=== PATIENT | female | born 1995 | race Two or more races ===

== ENCOUNTER 2021-03-25 19:49 | Observation (INO) | payer SELFPAY ==
[~2021-03-25] VITALS: Ht 154.9 cm; Wt 81.2 kg
[2021-03-25] MEDS ORDERED: PREN-96 PO (21:00)
== END 2021-03-25 21:06 | disposition home or self-care (01) ==
LOC: LDRP 19:49
PROVIDERS: ADMIT Specialist; ATTEND Specialist
DX: O62.9 Abnormality of forces of labor, unspecified (principal); Z3A.37 37 weeks gestation of pregnancy
CPT/HCPCS: 59025; 81002; G0378

== ENCOUNTER 2021-03-31 03:15 | Observation (INO) | payer OTHER ==
[~2021-03-31] VITALS: Ht 154.9 cm; Wt 81.2 kg
[~2021-03-31 03:15] MED LIST: PREN-96 PO
== END 2021-03-31 07:00 | disposition home or self-care (01) ==
LOC: LDRP 03:15
PROVIDERS: ADMIT Specialist; ATTEND Specialist
DX: O42.92 Full-term premature rupture of membranes, unspecified as to length of time between rupture and onset of labor (principal); O62.9 Abnormality of forces of labor, unspecified; Z3A.38 38 weeks gestation of pregnancy
CPT/HCPCS: 59025; 76815; 81002; 84112; G0378; Q0114

== ENCOUNTER 2021-03-31 17:00 | Observation (INO) | payer MEDICAID, OTHER | END 2021-03-31 18:05 | disposition home or self-care (01) | LOC: LDRP 17:00 | PROVIDERS: ADMIT Obstetrics & Gynecology; ATTEND Obstetrics & Gynecology | DX: O62.9 Abnormality of forces of labor, unspecified (principal); O26.893 Other specified pregnancy related conditions, third trimester; R51.9 Headache, unspecified; R11.0 Nausea; M79.89 Other specified soft tissue disorders; Z3A.38 38 weeks gestation of pregnancy | CPT/HCPCS: 59025; 81002; G0378 ==

== ENCOUNTER 2021-04-03 07:50 | Observation (INO) | payer OTHER | END 2021-04-03 09:39 | disposition home or self-care (01) | LOC: LDRP 07:50 | PROVIDERS: ADMIT Obstetrics & Gynecology; ATTEND Obstetrics & Gynecology | DX: O40.3XX0 Polyhydramnios, third trimester, not applicable or unspecified (principal); O62.9 Abnormality of forces of labor, unspecified; Z3A.38 38 weeks gestation of pregnancy | CPT/HCPCS: 59025; 76818; 81002; G0378 ==

== ENCOUNTER 2021-04-06 14:00 | Observation (INO) | payer OTHER | END 2021-04-06 15:35 | disposition home or self-care (01) | LOC: LDRP 14:00 | PROVIDERS: ADMIT Specialist; ATTEND Specialist | DX: O40.3XX0 Polyhydramnios, third trimester, not applicable or unspecified (principal); Z3A.39 39 weeks gestation of pregnancy | CPT/HCPCS: 59025; 76818; 81002; G0378 ==

== ENCOUNTER 2021-04-09 09:59 | Observation (INO) | payer OTHER ==
[2021-04-09 12:13] LABS: Basophils # (auto) 0 10 ^3/uL (0-0.2); Basophils % (auto) 0.2 % (0.0-2.0); Eosinophils # (auto) 0 10 ^3/uL (0-0.8); Eosinophils % (auto) 0.3 % (0.0-7.0); Hematocrit 34.9 % (36.0-46.0); Hemoglobin 11.8 g/dL (12.2-16.2); Lymphocytes # (auto) 2.3 10 ^3/uL (0.4-5.4); Lymphocytes % (auto) 18.3 % (10.0-50.0); Mean Corpuscular Hemoglobin 29.5 pg (28.0-32.0); Mean Corpuscular Hgb Conc. 33.8 g/dL (32.0-36.0); Mean Corpuscular Volume 87.2 fL (80.0-100.0); Monocytes # (auto) 0.8 10 ^3/uL (0-1.3); Neutrophils # (auto) 9.6 10 ^3/uL (1.6-8.6); Neutrophils % (auto) 75.2 % (37.0-80.0); Platelet Count (auto) 183 10^3/uL (140-450); Red Cell Distribution Width 15.5 % (11.8-14.3); White Blood Cell 12.8 10^3/uL (4.4-10.8)
[2021-04-09 12:21] LABS: Urine Bacteria FEW /hpf (None Seen); Urine Blood Negative /uL (Negative); Urine Specific Gravity 1.007 (1.001-1.035); Urine WBC 1 /hpf (0 - 5)
[2021-04-09 12:29] LABS: INR 0.88 (0.9-1.15); Partial Thromboplastin Time 25.5 sec (23.0-31.2)
[2021-04-09 12:32] LABS: Albumin 2.2 g/dL (3.4-5.0); Calcium 8.1 mg/dL (8.5-10.1)
[2021-04-09 12:33] LABS: Protein, Urine 7.2 mg/dL (0.0-11.9)
[2021-04-09 12:36] LABS: BUN/Creatinine Ratio 21.2; Bilirubin, Total 0.2 mg/dL (0.2-1.0); Total Protein 5.8 g/dL (6.4-8.2); Uric Acid 5.1 mg/dL (2.6-6.0)
== END 2021-04-09 14:15 | disposition home or self-care (01) ==
LOC: LDRP 09:59
PROVIDERS: ADMIT Obstetrics & Gynecology; ATTEND Obstetrics & Gynecology
DX: O40.3XX0 Polyhydramnios, third trimester, not applicable or unspecified (principal); Z3A.39 39 weeks gestation of pregnancy
CPT/HCPCS: 36415; 59025; 76818; 80053; 81001; 81002; 82570; 84156; 84550; 85025; 85610; 85730; G0378

== ENCOUNTER 2021-04-11 07:25 | Inpatient (IN) | payer OTHER ==
[~2021-04-11] VITALS: Ht 154.9 cm; Wt 81.2 kg
[2021-04-11 08:44] LABS: Protein, Urine 13.6 mg/dL (0.0-11.9)
[2021-04-11 08:50] LABS: Protein, Urine 17.3 mg/dL (0.0-11.9)
[2021-04-11 09:20] LABS: Urine Bacteria MANY /hpf (None Seen); Urine Blood Negative /uL (Negative); Urine Mucus FEW (None Seen); Urine Specific Gravity 1.011 (1.001-1.035); Urine WBC 64 /hpf (0 - 5)
[2021-04-11] MEDS ORDERED: LIDOCAINE 2%HCL (LOCAL ANESTH.) INJ 20ML MDV IJ PRN (10:00)
[2021-04-11] MEDS ORDERED: BUTORPHANOL TARTRATE 2 MG/1 ML VIAL IV PRN ×2 (10:00)
[2021-04-11] MEDS ORDERED: PROMETHAZINE HCL 25 MG/ML 1ML IV PRN (10:00)
[2021-04-11] MEDS ORDERED: PHISODERM TOP SOLN 240ML BTL TOP PRN (10:00)
[2021-04-11] MEDS ORDERED: DERMOPLAST 60ML BOTTLE TOP PRN (10:00)
[2021-04-11 10:58] LABS: Basophils # (auto) 0 10 ^3/uL (0-0.2); Basophils % (auto) 0.2 % (0.0-2.0); Eosinophils # (auto) 0 10 ^3/uL (0-0.8); Eosinophils % (auto) 0.2 % (0.0-7.0); Hematocrit 35.6 % (36.0-46.0); Lymphocytes # (auto) 2.5 10 ^3/uL (0.4-5.4); Lymphocytes % (auto) 18.7 % (10.0-50.0); Mean Corpuscular Hgb Conc. 33.6 g/dL (32.0-36.0); Mean Corpuscular Volume 86.3 fL (80.0-100.0); Monocytes # (auto) 0.7 10 ^3/uL (0-1.3); Monocytes % (auto) 4.9 % (0.0-12.0); Neutrophils # (auto) 10.1 10 ^3/uL (1.6-8.6); Nucleated Red Blood Cells % 0.1 %; Platelet Count (auto) 183 10^3/uL (140-450); Red Blood Cells 4.12 10^6/uL (4.0-5.20); White Blood Cell 13.3 10^3/uL (4.4-10.8)
[2021-04-11 11:16] LABS: Albumin 2.3 g/dL (3.4-5.0); Calcium 8.4 mg/dL (8.5-10.1)
[2021-04-11 11:17] LABS: Amphetamine Screen, Urine NEGATIVE (NEGATIVE); Barbiturate Scree,Urine NEGATIVE (NEGATIVE); Benzodiazephine Screen, Urine NEGATIVE (NEGATIVE); Cannabinoid Screen, Urine NEGATIVE (NEGATIVE); Cocaine Screen, Urine NEGATIVE (NEGATIVE); Opiate Scree,Urine NEGATIVE (NEGATIVE); Phencyclidine Screen, Urine NEGATIVE (NEGATIVE)
[2021-04-11 11:17] LABS: INR 0.87 (0.9-1.15); Partial Thromboplastin Time 24.5 sec (23.0-31.2)
[2021-04-11 11:20] LABS: BUN/Creatinine Ratio 21.4; Bilirubin, Total 0.2 mg/dL (0.2-1.0); Total Protein 5.8 g/dL (6.4-8.2); Uric Acid 5.1 mg/dL (2.6-6.0)
[2021-04-11] MEDS: LACTATED RINGER'S 1,000 ML IV SCH ×3 (12:53→23:23)
[2021-04-11] MEDS: miSOPROStol 50 MCG per PRE-CUT 1/2 TAB PO PRN ×3 (12:53→21:14)
[2021-04-11] MEDS ORDERED: LACT. RINGERS/OXYTOCIN 20UNITS 500 ML IV ONE ×2 (17:30→18:00)
[2021-04-12] VITALS (16 sets, daily range): BP systolic 107–152; BP diastolic 62–95
[2021-04-12] MEDS ORDERED: TERBUTALINE SULFATE 1 MG/ML 1ML VIAL SC ONE (01:15)
[2021-04-12] MEDS: LACT. RINGERS/OXYTOCIN 20UNITS 1,000 ML IV SCH (01:31)
[2021-04-12 05:08] LABS: RPR Non Reactive (Non Reactive)
[2021-04-12] MEDS ORDERED: fentaNYL CITRATE 100 MCG/2 ML VL IV ONE ×2 (05:30→07:00)
[2021-04-12] MEDS ORDERED: ePHEDrine SULFATE 50 MG/ML AMP IV ONE ×3 (05:30→07:00)
[2021-04-12] MEDS ORDERED: ROPIVACAINE HCL 200 ML EPI SCH ×2 (05:30→07:00)
[2021-04-12] MEDS ORDERED: LIDOCAINE HCL 2 %PF INJ 10ML AMP IJ ONE ×2 (05:30→07:00)
[2021-04-12] MEDS ORDERED: LACTATED RINGER'S 1,000 ML IV ONE (05:30)
[2021-04-12] MEDS ORDERED: NALOXONE HCL 0.4 MG/ML VIAL IV ONE ×3 (05:30→07:00)
[2021-04-12] MEDS: LACTATED RINGER'S 1,000 ML IV SCH ×2 (08:17→17:39)
[2021-04-12] MEDS ORDERED: LACTATED RINGER'S 1,000 ML IV SCH (14:45)
[2021-04-12] MEDS ORDERED: CLINDAMYCIN 900MG IV 50 ML IV ONE ×2 (14:45→23:00)
[2021-04-12] MEDS ORDERED: SODIUM BICARBONATE 8.4 % INJ 50ML VIAL IV ONE (14:51)
[2021-04-12] MEDS ORDERED: LIDOCAINE 2% (LOCAL ANESTH.) PF 5ml SDV ONE ×2 (14:51→16:12)
[2021-04-12] MEDS ORDERED: SODIUM CHLORIDE LOCK 10 ML ONE (14:51)
[2021-04-12] MEDS ORDERED: fentaNYL CITRATE 100 MCG/2 ML VL ONE (14:51)
[2021-04-12] MEDS ORDERED: MORPHINE SULF(PF) 0.5MG/ML 10ML VIAL ONE (14:51)
[2021-04-12] MEDS ORDERED: MIDAZOLAM HCL 1MG/1ML-2 ML VIAL ONE ×2 (14:51→15:54)
[2021-04-12] MEDS ORDERED: ONDANSETRON HCL 4 MG/2 ML VIAL ONE (14:51)
[2021-04-12] MEDS ORDERED: oxyTOCIN 10 UNIT/ML 10ML VIAL ONE (14:54)
[2021-04-12] MEDS ORDERED: ACETAMINOPHEN IV 1000 MG/100ML (10MG/ML) IV PRN (16:30)
[2021-04-12] MEDS ORDERED: GUM (CHEWING) 1 GUM CHEW CHEW ONE (16:30)
[2021-04-12] MEDS ORDERED: CLINDAMYCIN 600MG IV 50 ML IV ONE (16:30)
[2021-04-12] MEDS ORDERED: ONDANSETRON HCL 4 MG/2 ML VIAL IV PRN (16:30)
[2021-04-12] MEDS ORDERED: HYDROmorphone HCL 2 MG/ML VL IV PRN ×2 (16:30→16:45)
[2021-04-12] MEDS ORDERED: ePHEDrine SULFATE 50 MG/ML AMP IV PRN (16:30)
[2021-04-12] MEDS ORDERED: KETOROLAC TROMETH 30 MG/ML 1ML VIAL IV PRN (16:30)
[2021-04-12] MEDS ORDERED: MORPHINE SULFATE 4 MG/ML SYR/VIAL IV PRN (16:45)
[2021-04-12] MEDS ORDERED: METOCLOPRAMIDE HCL 5MG/ml INJ 2ml VIAL IV PRN (16:45)
[2021-04-12] MEDS ORDERED: NALOXONE HCL 0.4 MG/ML VIAL IV PRN (16:45)
[2021-04-12] MEDS ORDERED: diphenhdrAMINE HCL 50 MG/1 ML VL IV PRN (16:45)
[2021-04-12] MEDS ORDERED: hydrALAZINE HCL 20 MG/ML VL ONE (16:48)
[2021-04-12] MEDS ORDERED: hydrALAZINE HCL 20 MG/ML VL IV ONE (17:00)
[2021-04-12] MEDS ORDERED: RHO (D) IMMUNE GLOBULIN 300 MCG INJ IM ONE (17:30)
[2021-04-12] MEDS ORDERED: LABETALOL HCL 200 MG TAB PO SCH (18:30)
[2021-04-13] VITALS (18 sets, daily range): BP systolic 96–128; BP diastolic 54–80
[2021-04-13] MEDS: LACTATED RINGER'S 1,000 ML IV SCH ×2 (00:44→02:44)
[2021-04-13] MEDS: WITCH HAZEL-GLYCERIN PAD TOP PRN (06:52)
[2021-04-13] MEDS: LABETALOL HCL 200 MG TAB PO SCH ×3 (06:54→21:54)
[2021-04-13] MEDS: LACT. RINGERS/OXYTOCIN 20UNITS 1,000 ML IV SCH (07:32)
[2021-04-13 08:51] LABS: Basophils # (auto) 0 10 ^3/uL (0-0.2); Basophils % (auto) 0.1 % (0.0-2.0); Eosinophils # (auto) 0 10 ^3/uL (0-0.8); Hematocrit 27.5 % (36.0-46.0); Hemoglobin 9.4 g/dL (12.2-16.2); Lymphocytes # (auto) 1.5 10 ^3/uL (0.4-5.4); Lymphocytes % (auto) 8.7 % (10.0-50.0); Mean Corpuscular Hemoglobin 29.8 pg (28.0-32.0); Mean Corpuscular Hgb Conc. 34.1 g/dL (32.0-36.0); Mean Corpuscular Volume 87.2 fL (80.0-100.0); Monocytes % (auto) 5.6 % (0.0-12.0); Neutrophils # (auto) 14.4 10 ^3/uL (1.6-8.6); Neutrophils % (auto) 85.6 % (37.0-80.0); Platelet Count (auto) 161 10^3/uL (140-450); Red Blood Cells 3.15 10^6/uL (4.0-5.20); Red Cell Distribution Width 15.4 % (11.8-14.3); White Blood Cell 16.9 10^3/uL (4.4-10.8)
[2021-04-13] MEDS ORDERED: BISACODYL 10 MG RECT SUPP PR PRN (10:30)
[2021-04-13] MEDS ORDERED: HYDROcodone-ACET 5/325MG TAB PO PRN ×2 (10:30)
[2021-04-13] MEDS: CLINDAMYCIN 600MG IV 50 ML IV SCH ×2 (12:03→19:48)
[2021-04-13] MEDS: IBUPROFEN 800 MG TAB PO PRN ×2 (12:03→21:18)
[2021-04-13] MEDS: FERROUS SULFATE 325mg EC TAB PO SCH (17:54)
[2021-04-13] MEDS ORDERED: HYDR-4902 PO (21:37)
[2021-04-13] MEDS: DOCUSATE SOD 100 MG CAP PO SCH (21:54)
[2021-04-14 03:15] VITALS: BP_SYST 124; BP_SYST 125; BP_DIAS 80; BP_DIAS 81
[2021-04-14] MEDS: CLINDAMYCIN 600MG IV 50 ML IV SCH (03:34)
[2021-04-14 07:15] VITALS: BP 141/90
[2021-04-14] MEDS: IBUPROFEN 800 MG TAB PO PRN ×2 (07:30→16:07)
[2021-04-14] MEDS: FERROUS SULFATE 325mg EC TAB PO SCH ×2 (07:33→18:38)
[2021-04-14 09:55] VITALS: BP 140/85
[2021-04-14] MEDS: LABETALOL HCL 200 MG TAB PO SCH ×2 (09:55→21:43)
[2021-04-14] MEDS: DOCUSATE SOD 100 MG CAP PO SCH ×2 (09:56→21:44)
[2021-04-14] MEDS: DOCUSATE CALCIUM 240 MG CAP PO SCH (09:56)
[2021-04-14 11:00] VITALS: BP 135/80
[2021-04-14 18:45] VITALS: BP 137/79
[2021-04-14 23:10] VITALS: BP 128/81
[2021-04-15] MEDS: IBUPROFEN 800 MG TAB PO PRN (00:31)
[2021-04-15 03:25] VITALS: BP 135/84
[2021-04-15 07:00] VITALS: BP 131/83
[2021-04-15] MEDS: DOCUSATE CALCIUM 240 MG CAP PO SCH (10:07)
[2021-04-15] MEDS: DOCUSATE SOD 100 MG CAP PO SCH (10:07)
[2021-04-15 10:11] VITALS: BP 133/89
[2021-04-15] MEDS: LABETALOL HCL 200 MG TAB PO SCH (10:14)
[2021-04-15] MEDS: FERROUS SULFATE 325mg EC TAB PO SCH (10:23)
[2021-04-15] MEDS: WITCH HAZEL-GLYCERIN PAD TOP PRN (10:23)
[2021-04-15 11:00] VITALS: BP 133/89
== END 2021-04-15 11:00 | disposition home or self-care (01) | DRG 787 ==
LOC: LDRP 07:25 → OBSVTOIN 09:47 → LDRP 10:43
PROVIDERS: ADMIT Specialist; ATTEND Specialist
PROC: 3E0234Z Introduction of Serum, Toxoid and Vaccine into Muscle, Percutaneous Approach (ICD-10-PCS; 2021-04-12)
PROC: 10D00Z1 Extraction of Products of Conception, Low, Open Approach (ICD-10-PCS; principal; 2021-04-12 15:23)
DX: O13.4 Gestational [pregnancy-induced] hypertension without significant proteinuria, complicating childbirth (principal); R71.0 Precipitous drop in hematocrit; O69.81X0 Labor and delivery complicated by cord around neck, without compression, not applicable or unspecified; O62.1 Secondary uterine inertia; Z20.822 Contact with and (suspected) exposure to COVID-19; Z37.0 Single live birth; Z3A.40 40 weeks gestation of pregnancy; Z88.0 Allergy status to penicillin
CPT/HCPCS: 36415; 59025; 62282; 76818; 80053; 80307; 81001; 82570; 84156; 84550; 85025; 85610; 85730; 86592; 86850; 86870; 86900; 86901; 87426; 90384; 94760; 94762; 96360; 96361; 96365; 96366; 96374; G0378; J1885; J2001; J2250; J2405; J2590; J3490